=== PATIENT | male | born 1980 ===

== ENCOUNTER 2018-10-15 00:41 | Emergency (ER) | payer OTHER ==
[~2018-10-15] VITALS: Ht 182.9 cm; Wt 77.1 kg
[2018-10-15] MEDS ORDERED: QUET200 PO (00:57)
[2018-10-15] MEDS ORDERED: CARB100ER PO (00:58)
[2018-10-15 01:44] LABS: Hematocrit 41.6 % (37.0-53.0); Hemoglobin 13.9 g/dL (13.5-17.5); Mean Corpuscular HGB Conc 33.4 g/dL (31.5-36.5); Mean Corpuscular Volume 93 fL (80-100); Mean Platelet Volume 9.3 fL (9.1-12.4); Platelet Count 295 K/mm3 (150-400); RDW Coefficient Variation 12.4 % (11.7-14.2); RDW Standard Deviation 42.9 fL (35.1-46.3); Red Blood Cell Count 4.48 M/mm3 (4.30-5.90); White Blood Cell Count 14.09 K/mm3 (4.00-11.30)
[2018-10-15 02:19] LABS: Alanine Aminotransfer (ALT/SGP 36 U/L (12-78); Albumin, Blood 3.4 g/dL (3.4-5.0); Albumin/Globulin Ratio 0.7 (0.8-1.8); Alk Phos 125 U/L (50-136); Anion Gap 12 mmol/L (6-16); Aspartate Aminotrans (AST/SGOT 20 U/L (12-37); Bilirubin, Total 0.4 mg/dL (0.1-1.0); Blood Urea Nitrogen 12 mg/dL (8-24); Bun/Creatinine Ratio 15.3 (12.0-20.0); CO2, Blood 26 mmol/L (21-32); Calcium, Blood 9.2 mg/dL (8.5-10.1); Chloride, Blood 96 mmol/L (98-108); Creatinine, Blood 0.78 mg/dL (0.60-1.20); Globulin, Blood 4.9 g/dL (2.2-4.0); Glomerular Filtration Rate >60 (60-); Glucose, Blood 135 mg/dL (70-99); Potassium, Blood 3.7 mmol/L (3.5-5.5); Sodium, Blood 134 mmol/L (136-145); Total Protein, Blood 8.3 g/dL (6.4-8.2)
[2018-10-15 02:37] LABS: BAND PERCENT MAN 12 % (0-8); BASOPHILS PERCENT MAN 0 % (0-2); EOSINOPHILS PERCENT MAN 0 % (0-6); LYMPHOCYTES ABSOLUTE MAN 0.14 K/mm3 (0.84-5.20); LYMPHOCYTES PERCENT MAN 1 % (21-46); MONOCYTES PERCENT MAN 5 % (4-13); NEUTROPHILS ABSOLUTE MAN 13.24 K/mm3 (1.96-9.15); SEG NEUTROPHILS PERCENT MAN 82 % (41-73); TOTAL CELLS COUNTED 100
[2018-10-15 03:50] LABS: Source, Urine Clean Catch
[2018-10-15 03:52] LABS: Bilirubin, Urine Neg (Neg); Blood, Urine 4+ (Neg); Glucose Qualitative, Urine Neg (Neg); Ketones, Urine 3+ (Neg); Leukocyte Esterase, Urine 2+ (Neg); Nitrite, Urine Pos (Neg); Protein, Urine 3+ (Neg); Specific Gravity, Urine 1.025 (1.003-1.022); Urobilinogen, Urine 1+ (Normal)
[2018-10-15 04:04] LABS: Appearance, Urine Hazy (Clear); Color, Urine Amber (P-Yellow)
[2018-10-15 04:05] LABS: Bacteria Mod /hpf; Squamous Epithelial Cells Few /hpf (Few); White Blood Cells, Urine TNTC /hpf (0-5)
[2018-10-15] MEDS ORDERED: Percocet 5-3251 EACH PO (04:17)
[2018-10-15] MEDS ORDERED: CEFD300 PO (04:17)
== END 2018-10-15 04:50 | disposition home or self-care (01) ==
LOC: ER 00:41
PROVIDERS: Emergency Medicine
DX: N45.1 Epididymitis (principal); N43.3 Hydrocele, unspecified; F17.200 Nicotine dependence, unspecified, uncomplicated; Z86.73 Personal history of transient ischemic attack (TIA), and cerebral infarction without residual deficits; Z79.899 Other long term (current) drug therapy
CPT/HCPCS: 36415; 51798; 76870; 80053; 81001; 85025; 87077; 87086; 87186; 96361; 96374; 99284-25; J1170; J7030

== ENCOUNTER 2018-10-31 17:13 | Emergency (ER) | payer OTHER ==
[~2018-10-31] VITALS: Ht 165.1 cm; Wt 68.0 kg
[~2018-10-31 17:13] MED LIST: CARB100ER PO; CEFD300 PO; Percocet 5-3251 EACH PO; QUET200 PO
[2018-10-31 18:10] LABS: BASOPHILS ABSOLUTE AUTO 0.09 K/mm3 (0.00-0.23); BASOPHILS PERCENT AUTO 1 % (0-2); EOSINOPHILS ABSOLUTE AUTO 0.14 K/mm3 (0.00-0.68); EOSINOPHILS PERCENT AUTO 2 % (0-6); Hematocrit 41.2 % (37.0-53.0); Hemoglobin 13.3 g/dL (13.5-17.5); IMMATURE GRAN ABSOLUTE AUTO 0.08 K/mm3 (0.00-0.10); IMMATURE GRAN PERCENT AUTO 1 % (0-1); LYMPHOCYTES ABSOLUTE AUTO 1.82 K/mm3 (0.84-5.20); LYMPHOCYTES PERCENT AUTO 20 % (21-46); MONOCYTES ABSOLUTE AUTO 0.53 K/mm3 (0.16-1.47); MONOCYTES PERCENT AUTO 6 % (4-13); Mean Corpuscular HGB 30.2 pg (26.0-34.0); Mean Corpuscular HGB Conc 32.3 g/dL (31.5-36.5); Mean Corpuscular Volume 93 fL (80-100); Mean Platelet Volume 8.7 fL (9.1-12.4); NEUTROPHILS ABSOLUTE AUTO 6.59 K/mm3 (1.96-9.15); NEUTROPHILS PERCENT AUTO 71 % (41-73); Platelet Count 757 K/mm3 (150-400); RDW Coefficient Variation 12.8 % (11.7-14.2); RDW Standard Deviation 43.9 fL (35.1-46.3); Red Blood Cell Count 4.41 M/mm3 (4.30-5.90); White Blood Cell Count 9.25 K/mm3 (4.00-11.30)
[2018-10-31 18:34] LABS: Alanine Aminotransfer (ALT/SGP 60 U/L (12-78); Albumin, Blood 3.5 g/dL (3.4-5.0); Albumin/Globulin Ratio 0.8 (0.8-1.8); Alk Phos 178 U/L (50-136); Anion Gap 6 mmol/L (6-16); Aspartate Aminotrans (AST/SGOT 12 U/L (12-37); Bilirubin, Total 0.2 mg/dL (0.1-1.0); Blood Urea Nitrogen 16 mg/dL (8-24); Bun/Creatinine Ratio 24.1 (12.0-20.0); CO2, Blood 26 mmol/L (21-32); Calcium, Blood 8.8 mg/dL (8.5-10.1); Chloride, Blood 106 mmol/L (98-108); Creatinine, Blood 0.66 mg/dL (0.60-1.20); Globulin, Blood 4.6 g/dL (2.2-4.0); Glomerular Filtration Rate >60 (60-); Glucose, Blood 98 mg/dL (70-99); Potassium, Blood 4.4 mmol/L (3.5-5.5); Sodium, Blood 138 mmol/L (136-145); Total Protein, Blood 8.1 g/dL (6.4-8.2)
[2018-10-31 18:46] LABS: Source, Urine Clean Catch
[2018-10-31 18:51] LABS: Bilirubin, Urine Neg (Neg); Blood, Urine Neg (Neg); Glucose Qualitative, Urine Neg (Neg); Ketones, Urine Neg (Neg); Leukocyte Esterase, Urine 1+ (Neg); Nitrite, Urine Neg (Neg); Protein, Urine 1+ (Neg); Urobilinogen, Urine NORM (Normal)
[2018-10-31 18:52] LABS: Appearance, Urine Clear (Clear); Color, Urine Yellow (P-Yellow)
[2018-10-31 19:04] LABS: Bacteria Few /hpf; Red Blood Cells, Urine 0-2 /hpf (0-2); White Blood Cells, Urine 0-2 /hpf (0-5)
[2018-10-31 19:05] LABS: Squamous Epithelial Cells Rare /hpf (Few)
== END 2018-10-31 19:04 | disposition short-term general hospital (02) ==
LOC: ER 17:13
PROVIDERS: Emergency Medicine
DX: N45.1 Epididymitis (principal); Z79.899 Other long term (current) drug therapy; Z86.73 Personal history of transient ischemic attack (TIA), and cerebral infarction without residual deficits; F17.210 Nicotine dependence, cigarettes, uncomplicated
CPT/HCPCS: 36415; 72193; 80053; 81001; 83605; 85025; 87086; 96365-59; 96368; 96375; 99285-25; J1170; J2543; J3370; J7030; Q9967

== ENCOUNTER 2019-03-11 21:22 | Inpatient (IN) | payer OTHER ==
[~2019-03-11] VITALS: Ht 182.9 cm; Wt 76.1 kg
[2019-03-11 22:04] LABS: BASOPHILS ABSOLUTE AUTO 0.07 K/mm3 (0.00-0.23); BASOPHILS PERCENT AUTO 0 % (0-2); EOSINOPHILS ABSOLUTE AUTO 0.07 K/mm3 (0.00-0.68); EOSINOPHILS PERCENT AUTO 0 % (0-6); Hemoglobin 14.7 g/dL (13.5-17.5); IMMATURE GRAN ABSOLUTE AUTO 0.26 K/mm3 (0.00-0.10); IMMATURE GRAN PERCENT AUTO 1 % (0-1); LYMPHOCYTES ABSOLUTE AUTO 1.16 K/mm3 (0.84-5.20); LYMPHOCYTES PERCENT AUTO 4 % (21-46); MONOCYTES ABSOLUTE AUTO 1.33 K/mm3 (0.16-1.47); MONOCYTES PERCENT AUTO 5 % (4-13); Mean Corpuscular HGB 30.5 pg (26.0-34.0); Mean Corpuscular HGB Conc 33.4 g/dL (31.5-36.5); Mean Corpuscular Volume 91 fL (80-100); Mean Platelet Volume 9.2 fL (9.1-12.4); NEUTROPHILS ABSOLUTE AUTO 23.92 K/mm3 (1.96-9.15); NEUTROPHILS PERCENT AUTO 89 % (41-73); Platelet Count 391 K/mm3 (150-400); RDW Coefficient Variation 12.3 % (11.7-14.2); RDW Standard Deviation 41.1 fL (35.1-46.3); Red Blood Cell Count 4.82 M/mm3 (4.30-5.90); White Blood Cell Count 26.81 K/mm3 (4.00-11.30)
[2019-03-11 23:13] LABS: Alanine Aminotransfer (ALT/SGP 39 U/L (12-78); Albumin, Blood 3.2 g/dL (3.4-5.0); Albumin/Globulin Ratio 0.7 (0.8-1.8); Alk Phos 124 U/L (50-136); Anion Gap 7 mmol/L (6-16); Aspartate Aminotrans (AST/SGOT 32 U/L (12-37); Bilirubin, Total 0.5 mg/dL (0.1-1.0); Blood Urea Nitrogen 11 mg/dL (8-24); Bun/Creatinine Ratio 13.5 (12.0-20.0); CO2, Blood 31 mmol/L (21-32); Chloride, Blood 99 mmol/L (98-108); Creatinine, Blood 0.82 mg/dL (0.60-1.20); Globulin, Blood 4.5 g/dL (2.2-4.0); Glomerular Filtration Rate >60 (60-); Glucose, Blood 97 mg/dL (70-99); Potassium, Blood 3.4 mmol/L (3.5-5.5); Sodium, Blood 137 mmol/L (136-145); Total Protein, Blood 7.7 g/dL (6.4-8.2)
[2019-03-11 23:41] LABS: Source, Urine Clean Catch
[2019-03-11 23:44] LABS: Bilirubin, Urine Neg (Neg); Blood, Urine 3+ (Neg); Glucose Qualitative, Urine Neg (Neg); Ketones, Urine Neg (Neg); Leukocyte Esterase, Urine 3+ (Neg); Nitrite, Urine Neg (Neg); Protein, Urine 2+ (Neg); Specific Gravity, Urine 1.015 (1.003-1.022); Urobilinogen, Urine NORM (Normal)
[2019-03-11 23:45] LABS: Appearance, Urine Clear (Clear); Color, Urine Yellow (P-Yellow)
[2019-03-11 23:49] LABS: Red Blood Cells, Urine 0-2 /hpf (0-2); White Blood Cells, Urine 50-100 /hpf (0-5)
[2019-03-11 23:50] LABS: Bacteria Many /hpf; Mucus Light (0-Heavy); Squamous Epithelial Cells Few /hpf (Few)
[2019-03-12 05:33] LABS: BASOPHILS ABSOLUTE AUTO 0.06 K/mm3 (0.00-0.23); BASOPHILS PERCENT AUTO 0 % (0-2); EOSINOPHILS ABSOLUTE AUTO 0.08 K/mm3 (0.00-0.68); EOSINOPHILS PERCENT AUTO 0 % (0-6); Hematocrit 40.9 % (37.0-53.0); Hemoglobin 13.3 g/dL (13.5-17.5); IMMATURE GRAN PERCENT AUTO 2 % (0-1); LYMPHOCYTES ABSOLUTE AUTO 0.64 K/mm3 (0.84-5.20); LYMPHOCYTES PERCENT AUTO 3 % (21-46); MONOCYTES ABSOLUTE AUTO 1.52 K/mm3 (0.16-1.47); MONOCYTES PERCENT AUTO 7 % (4-13); Mean Corpuscular HGB 30.3 pg (26.0-34.0); Mean Corpuscular HGB Conc 32.5 g/dL (31.5-36.5); Mean Corpuscular Volume 93 fL (80-100); Mean Platelet Volume 9.4 fL (9.1-12.4); NEUTROPHILS ABSOLUTE AUTO 20.55 K/mm3 (1.96-9.15); NEUTROPHILS PERCENT AUTO 88 % (41-73); Platelet Count 340 K/mm3 (150-400); RDW Coefficient Variation 12.5 % (11.7-14.2); RDW Standard Deviation 42.9 fL (35.1-46.3); Red Blood Cell Count 4.39 M/mm3 (4.30-5.90); White Blood Cell Count 23.35 K/mm3 (4.00-11.30)
[2019-03-12] MEDS ORDERED: Augmentin 875-1 EACH PO (14:19)
--- NOTE | 2019-03-12 17:38 | NUR ---
PT AOX4 AND COOPERATIVE OF CARE. PT INDEPENDENT, BUT MAY NEED HELP IF IV IS HOOKED UP. PT REPORTED HIS PAIN A 10 UPON ARRIVAL.R TESTICLE IS VERY SWOLLEN HOT AND RED. TREATED PAIN PER EMAR AND THE ADDITION OF ORAL PAIN MEDICATION AND APPLICATION OF ICE SEEMS TO BE EFFECTIVE AT THIS TIME. PT SLEEPING. WILL CONTINUE TO MONITOR.
--- NOTE | 2019-03-13 03:15 | NUR ---
SHIFT SUMMARY PATIENT HAD NO ACUTE CHANGES OBSERVED DURING THE SHIFT. AXOX 3 AND INDEPENDENT IN THE ROOM. RS WEAKNESS FROM HX CVA. PATIENT REPORTED REDUCED R. TESTICLE PAIN WITH PERCOCET. DENIES SOB AND N/V. VSS/AFEBRILE. USES URINAL AT BEDSIDE. TAKES MEDICATION WHOLE WITH WATER. PATIENT ABLE TO REST WITH PAIN MANAGEMENT. CALL LIGHT IN REACH. BED IN LOWEST POSITION. WILL CONTINUE TO MONITOR UNTIL DAY SHIFT NURSE ASSUMES CARE.
[2019-03-13 05:12] LABS: BASOPHILS ABSOLUTE AUTO 0.04 K/mm3 (0.00-0.23); BASOPHILS PERCENT AUTO 0 % (0-2); EOSINOPHILS ABSOLUTE AUTO 0.11 K/mm3 (0.00-0.68); EOSINOPHILS PERCENT AUTO 1 % (0-6); Hemoglobin 13.3 g/dL (13.5-17.5); IMMATURE GRAN ABSOLUTE AUTO 0.35 K/mm3 (0.00-0.10); IMMATURE GRAN PERCENT AUTO 2 % (0-1); LYMPHOCYTES ABSOLUTE AUTO 0.85 K/mm3 (0.84-5.20); LYMPHOCYTES PERCENT AUTO 4 % (21-46); MONOCYTES ABSOLUTE AUTO 1.26 K/mm3 (0.16-1.47); MONOCYTES PERCENT AUTO 7 % (4-13); Mean Corpuscular HGB 29.8 pg (26.0-34.0); Mean Corpuscular HGB Conc 33.3 g/dL (31.5-36.5); NEUTROPHILS ABSOLUTE AUTO 16.74 K/mm3 (1.96-9.15); NEUTROPHILS PERCENT AUTO 87 % (41-73); Platelet Count 357 K/mm3 (150-400); RDW Coefficient Variation 12.5 % (11.7-14.2); RDW Standard Deviation 41.2 fL (35.1-46.3); Red Blood Cell Count 4.47 M/mm3 (4.30-5.90); White Blood Cell Count 19.35 K/mm3 (4.00-11.30)
--- NOTE | 2019-03-13 05:23 | NUR ---
IV ABX INFUSING. PATIENT WATCHING TV. CALL LIGHT IN REACH.
[2019-03-13 05:28] LABS: Mean Corpuscular Volume 90 fL (80-100)
[2019-03-13 05:45] LABS: Albumin, Blood 2.4 g/dL (3.4-5.0); Anion Gap 8 mmol/L (6-16); Blood Urea Nitrogen 8 mg/dL (8-24); Bun/Creatinine Ratio 10.9 (12.0-20.0); CO2, Blood 26 mmol/L (21-32); Calcium, Blood 8.4 mg/dL (8.5-10.1); Chloride, Blood 98 mmol/L (98-108); Creatinine, Blood 0.73 mg/dL (0.60-1.20); Glomerular Filtration Rate >60 (60-); Glucose, Blood 102 mg/dL (70-99); Phosphorus, Blood 3.5 mg/dL (2.5-4.9); Potassium, Blood 3.3 mmol/L (3.5-5.5); Sodium, Blood 132 mmol/L (136-145)
--- NOTE | 2019-03-13 17:21 | NUR ---
PT AOX4 AND COOPERATIVE OF CARE. PT HAS BEEN SLEEPING IN BED ALL DAY. TREATED FOR R TESTICLE PAIN PER EMAR. PT HAS NEEDED PAIN COVERAGE SOON IT IS DUE.PT SLEEPING AT THIS TIME, DID HAVE AND EPISODE OF NAUSEA AND WAS TREATED WITH ZOFRAN. WILL CONTINUR TO MONITOR.
[2019-03-14 05:10] LABS: BASOPHILS ABSOLUTE AUTO 0.07 K/mm3 (0.00-0.23); BASOPHILS PERCENT AUTO 0 % (0-2); EOSINOPHILS ABSOLUTE AUTO 0.16 K/mm3 (0.00-0.68); EOSINOPHILS PERCENT AUTO 1 % (0-6); Hematocrit 39.3 % (37.0-53.0); Hemoglobin 13.1 g/dL (13.5-17.5); IMMATURE GRAN ABSOLUTE AUTO 0.11 K/mm3 (0.00-0.10); IMMATURE GRAN PERCENT AUTO 1 % (0-1); LYMPHOCYTES ABSOLUTE AUTO 0.75 K/mm3 (0.84-5.20); LYMPHOCYTES PERCENT AUTO 5 % (21-46); MONOCYTES ABSOLUTE AUTO 1.04 K/mm3 (0.16-1.47); MONOCYTES PERCENT AUTO 7 % (4-13); Mean Corpuscular HGB Conc 33.3 g/dL (31.5-36.5); Mean Corpuscular Volume 90 fL (80-100); Mean Platelet Volume 8.9 fL (9.1-12.4); NEUTROPHILS ABSOLUTE AUTO 13.78 K/mm3 (1.96-9.15); NEUTROPHILS PERCENT AUTO 87 % (41-73); Platelet Count 382 K/mm3 (150-400); RDW Coefficient Variation 12.7 % (11.7-14.2); RDW Standard Deviation 42.4 fL (35.1-46.3); Red Blood Cell Count 4.36 M/mm3 (4.30-5.90); White Blood Cell Count 15.91 K/mm3 (4.00-11.30)
--- NOTE | 2019-03-14 05:10 | NUR ---
SHIFT SUMMARY: PATIENT PLEASANT AND COOPERATIVE WITH CARE. IS INDEPENDANT IN ROOM DISPITE RS WEAKNESS FROM PREVIOUS CVA. HE HAS HAD INCREASE IN PAIN OFF AND ON THIS SHIFT NEEDING PAIN MEDS SOON THEY ARE DUE. HE HAS HAD FENTANTYL X 1 SO FAR ON THIS SHIFT AFTER SOME MOVEMENT TO FULL SITTING POSITION. WITH PERCOCET HE REPORTS DECLINE OF PAIN LEVEL, TO AVERAGE 3/10, FENTANYL BROUGHT PAIN TO ALMOST A 0/10. HE HAD INCREASE IN APPETITE AND FLUID INTAKE WHICH INCREASED HIS OUTPUT WELL USING THE URINAL AT BEDSIDE. HE CONTINUES TO USE ICE A ALTERNATIVE METHODS OF PAIN MANAGMENT WELL. MEDS WERE GIVEN PER EMAR. IV REMAINED PATIENT, CALL LIGHT REMAINED WITH IN REACH. WILL REPORT TO DAY SHIFT RN.
[2019-03-14 05:40] LABS: Albumin, Blood 2.3 g/dL (3.4-5.0); Anion Gap 9 mmol/L (6-16); Blood Urea Nitrogen 7 mg/dL (8-24); Bun/Creatinine Ratio 8.7 (12.0-20.0); CO2, Blood 26 mmol/L (21-32); Calcium, Blood 8.4 mg/dL (8.5-10.1); Chloride, Blood 96 mmol/L (98-108); Glomerular Filtration Rate >60 (60-); Glucose, Blood 117 mg/dL (70-99); Phosphorus, Blood 4.2 mg/dL (2.5-4.9); Potassium, Blood 3.3 mmol/L (3.5-5.5); Sodium, Blood 131 mmol/L (136-145)
--- NOTE | 2019-03-14 17:22 | NUR ---
SHIFT SUMMARY: PT IS A/O X 4 THIS SHIFT BUT SPEAKS IN BROKEN SENTENCES AND IS SLOW TO REPSOND DUE TO HIS HX OF CVA. PT SLEPT MOST OF THIS MORNING AND AWOKE WITH A MENDEZ WELL INCREASED PAIN TO HIS TESTICLE. PAIN MED WAS GIVEN ORDERED AND AREA WAS ELEVATED AND ICE PACK APPLIED. TESTICLE WAS WARMA DN RED AND PAINFUL TO THE TOUCH. HOSPITALIST ORDERED A ONE TIME DOSE OF PAIN MEDICATION WHICH WAS GIVEN AND PT STATED IT TO BE EFFECTIVE. PT WAS ASSISTED TO TAKE A SHOWER AND STATED HE FELT MUCH BETTER AFTERWARD. PT HAS BEEN USING URINAL FOR VOIDING. IV FLUIDS/ABO INFUSED WITH NO ISSUE. PT IS ABLE TO MAKE HIS NEEDS KNOWN AND CALLS WITH CALL LIGHT WHEN NEEDED.
[2019-03-14 19:06] LABS: CHLAMYDIA TRACHOMATIS, NAA Negative (Negative); NEISSERIA GONORRHOEAE, NAA Negative (Negative)
--- NOTE | 2019-03-14 22:07 | NUR ---
ASSUMED CARE OF THE PATIENT AT BEGINNING OF SHIFT. WATCHING TV IN THE ROOM. REPORTS CHANGED IN GROIN AREA, THAT STARTED TODAY AFTER NAPE. RIGHT TESTICLE IS LARGER THEN YESTERDAY, FIRM AND RED. EDEMA IS PROTUDING INTO THE GROIN AREA ABOVE THE SCROTUM AREA. TENDER TO THE TOUCH, WARM. ALSO REPORTS HEADACHE. LUNG SOUNDS ARE CLEAR THROUGHOUT, RESP EVEN AND UNLABORED, HR NORMAL. BT X4, ON DAY 3 OF NO BM, HAS BEEN GETTING MIRALAX AND STOOL SOFTNERS. CALLED MD EARLIER REGARDING THIS, STATES JUST KEEP HIM ON MIRLAX DAILY. IV DRESSING LIFTED UP, CHANGED DRESSING, IV FLUSHED WITH NO PROBLEMS. GAVE 2 OF PERCOCET. THIS HELPED TO RELEIVE THE HEADACHE AND GROIN PAIN. WILL CONTINUE TO MONITOR.
[2019-03-15 04:55] LABS: BASOPHILS ABSOLUTE AUTO 0.05 K/mm3 (0.00-0.23); BASOPHILS PERCENT AUTO 0 % (0-2); EOSINOPHILS ABSOLUTE AUTO 0.13 K/mm3 (0.00-0.68); EOSINOPHILS PERCENT AUTO 1 % (0-6); Hematocrit 39.4 % (37.0-53.0); Hemoglobin 13.2 g/dL (13.5-17.5); IMMATURE GRAN PERCENT AUTO 1 % (0-1); LYMPHOCYTES ABSOLUTE AUTO 0.86 K/mm3 (0.84-5.20); LYMPHOCYTES PERCENT AUTO 6 % (21-46); MONOCYTES ABSOLUTE AUTO 1.68 K/mm3 (0.16-1.47); MONOCYTES PERCENT AUTO 11 % (4-13); Mean Corpuscular HGB 30.3 pg (26.0-34.0); Mean Corpuscular HGB Conc 33.5 g/dL (31.5-36.5); Mean Corpuscular Volume 90 fL (80-100); Mean Platelet Volume 9.1 fL (9.1-12.4); NEUTROPHILS ABSOLUTE AUTO 12.18 K/mm3 (1.96-9.15); NEUTROPHILS PERCENT AUTO 81 % (41-73); Platelet Count 366 K/mm3 (150-400); RDW Coefficient Variation 12.9 % (11.7-14.2); RDW Standard Deviation 42.7 fL (35.1-46.3); Red Blood Cell Count 4.36 M/mm3 (4.30-5.90)
--- NOTE | 2019-03-15 05:02 | NUR ---
SHIFT SUMMARY: LORENE DID ALOT BETTER THIS NIGHT. HE HAD A DECREASE IN PAIN USE THIS SHIFT DISPITE THE CHANGES TO HIS TESTICLE, WHICH INCLUDE INCREASE SWELLING TO GROIN AREA, FIRMNESS AND INCREASE IN REDNESS. ALTERNATIVE PAIN MANAGMENET HAS BEEN PROVIDED WITH ELEVATION, ICE PACKS, AND DISTRACTION WHICH HAS HELPED TO RELEIVE THE PAIN. HE HAS ONLY HAD TWO DOSAGES OF PERCOCET THIS SHIFT, NO FENTANYL. HE REPORTED NO BM YEARLY IN SHIFT WHICH WAS DAY THREE, HAS BEEN GETTING COLACE AND MD MELL WAS INFORMED WITH NO FURTHER CHANGES. WILL REPORT TO DAY SHIFT RN.
[2019-03-15 05:25] LABS: Albumin, Blood 2.4 g/dL (3.4-5.0); Anion Gap 10 mmol/L (6-16); Blood Urea Nitrogen 11 mg/dL (8-24); Bun/Creatinine Ratio 14.2 (12.0-20.0); CO2, Blood 25 mmol/L (21-32); Calcium, Blood 8.5 mg/dL (8.5-10.1); Chloride, Blood 95 mmol/L (98-108); Creatinine, Blood 0.78 mg/dL (0.60-1.20); Glomerular Filtration Rate >60 (60-); Glucose, Blood 112 mg/dL (70-99); Phosphorus, Blood 3.2 mg/dL (2.5-4.9); Potassium, Blood 3.8 mmol/L (3.5-5.5); Sodium, Blood 130 mmol/L (136-145)
--- NOTE | 2019-03-15 16:27 | NUR ---
SHIFT SUMMARY: PT IS A/O AT BASELINE THIS SHIFT WITH C/O PAIN TO RIGHT TESTICLE X 1. PAIN MEDS GIVEN ORDERED AND AREA WAS ELEVATED AND ICED AND HE WAS ABLE TO SLEEP. IV ABO INFUSED WITH NO ISSUE AFTER CHARGE NURSE WAS ABLE TO START A NEW PERIPHERAL LINE. PT CONTINUES TO USE THE URINAL FOR TOILETING. HE IS ABLE TO MAKE HIS NEEDS KNOWN AND CALLS FOR HELP WHEN NEEDED.
--- NOTE | 2019-03-15 19:20 | NUR ---
ASSUMED CARE OF THE PATIENT. PATIENT RESTING IN BED WATCHING TV. REPORTED TO SCIENTIFIC DIRECTOR BEFORE DAY SHIFT ENDED THAT HE IS HEARING VOICES. CONFIRMED THIS WITH THE PATIENT. HE STATES NEED HOME MEDICATION BUT COULD NOT REMEMBER WHICH MEDICATIONS HE WAS ON. IN CHART REVIEW NOTED HE WAS TAKING SEREQUAL. WILL CALL MD TO GET THIS ORDERED. SWELLING IN TESTICLE HAD DECREASED ALOT RAWHIDE TRIMMER IN THE RIGHT ABOVE SCROTUM AREA. HE SAID HE FELT LIKE THERE WAS A POP AND THE PAIN EASED. HE IS KEEPING ICE ON IT AT THIS TIME. ALONG WITH ELEVATIONS. WILL CONTINUE TO MONITOR.
--- NOTE | 2019-03-15 20:50 | NUR ---
SPOKE TO MD REGARDING HOME MEDICATION. HE ORDERED SEREQUEL 100MG ONE TIME DOSE AND RECOMMENDS DAY SHIFT MD TO FOLLOW UP ON RESTARTING HOME MEDS, WILL PASS THIS TO DAY SHIFT RN.
--- NOTE | 2019-03-16 05:49 | NUR ---
SHIFT SUMMARY: PATIENT REPORTED AT BEGINNING OF SHIFT THAT HE WAS HEARING VOICES AGAIN, AND NEEDED HIS HOME MEDICATIONS. GOT ORDER FOR SERQUEL AND GAVE THAT TO HIM. HE SLEPT THROUGHOUT THE NIGHT TILL THIS AM WHERE HE WOKE FOR PAIN MEDS. SCROTUM AND TESTICLE SWELLING HAS DECREASED IN SIZE, REDNESS HAS IMPROVED SOME, AND HE HAS HAD DECREASE OF USE OF PAIN MEDS WELL. VS REMAINED STABLE, MEDS PER EMAR, PAIN REMAINED IN CONTROL. WILL REPORT TO DAY SHIFT RN.
[2019-03-16] MEDS ORDERED: QUET200 PO (14:09)
[2019-03-16] MEDS ORDERED: QUET100 PO (14:09)
--- NOTE | 2019-03-16 14:20 | NUR ---
PT REPORTS HEARING VOICES AND STATES THAT HE HAS A HX OF THIS. THIS NURSE SPOKE WITH PT PARENTS WHO STATED THAT HE WAS TAKING SEROQUEL AT HOME FOR THE AUDITORY HALLUCINATIONS. DOSE AND FREQUENCY WERE CONFIRMED BY PHARMACY AND DR RODRÍGUEZ NOTIFIED.
--- NOTE | 2019-03-16 17:10 | NUR ---
SHIFT SUMMARY: PT IS A/O AT BASELINE THIS SHIFT WITH C/O PAIN TO RIGHT TESTICLE AND PAIN MEDS WERE GIVEN ORDERED ALONG WITH ICE AND PT WAS ABLE TO REST. THIS NURSE ASSISTED PT WITH A SHOWER TODAY. PT REPORTED HEARING VOICES AND STATED THAT HE WAS TAKING SEROQUEL AT HOME. NOTIFIED AND CHARGE NURSE VERIFIED DOSE WITH PHARMACY, NEW ORDERS WERE RECEIVED AND ORDERS IMPLEMENTED. IV ABO INFUSED ORDERED WITH NO ISSUE. PT IS RESTING IN BED AND USES CALL LIGHT FOR HELP WHEN NEEDED.
[2019-03-17 05:23] LABS: BASOPHILS ABSOLUTE AUTO 0.04 K/mm3 (0.00-0.23); BASOPHILS PERCENT AUTO 0 % (0-2); EOSINOPHILS ABSOLUTE AUTO 0.22 K/mm3 (0.00-0.68); EOSINOPHILS PERCENT AUTO 2 % (0-6); Hemoglobin 13.3 g/dL (13.5-17.5); IMMATURE GRAN ABSOLUTE AUTO 0.17 K/mm3 (0.00-0.10); IMMATURE GRAN PERCENT AUTO 1 % (0-1); LYMPHOCYTES PERCENT AUTO 8 % (21-46); MONOCYTES ABSOLUTE AUTO 1.28 K/mm3 (0.16-1.47); MONOCYTES PERCENT AUTO 9 % (4-13); Mean Corpuscular HGB 30.2 pg (26.0-34.0); Mean Corpuscular HGB Conc 33.3 g/dL (31.5-36.5); Mean Corpuscular Volume 91 fL (80-100); Mean Platelet Volume 9.1 fL (9.1-12.4); NEUTROPHILS ABSOLUTE AUTO 10.74 K/mm3 (1.96-9.15); NEUTROPHILS PERCENT AUTO 79 % (41-73); Platelet Count 393 K/mm3 (150-400); RDW Coefficient Variation 13.2 % (11.7-14.2); RDW Standard Deviation 44.5 fL (35.1-46.3); Red Blood Cell Count 4.41 M/mm3 (4.30-5.90); White Blood Cell Count 13.55 K/mm3 (4.00-11.30)
--- NOTE | 2019-03-17 05:39 | NUR ---
SCHOOL LABORATORY TECHNICIAN SUMMARY NO ACUTE CHANGES THIS SHIFT. PT AAOX3 AND PLEASANT. R TESTICLE STILL HAS SIGNIFICANT SWELLING AND IS PAINFUL AT TIMES FOR PT. TREATED PAIN X2 WITH ORDERED NORCO WITH GOOD PAIN RELIEF. PT DENIES ANY VISUAL OR AUDITORY HALLUCINATIONS THIS SHIFT. PT STATES HE FEELS BETTER SINCE REGULAR SEROQUEL HAS BEEN RESTARTED. PT TO HAVE TESTICULAR ULTRASOUND LATER TODAY. VSS, WILL CONTINUE TO MONITOR.
--- NOTE | 2019-03-17 18:03 | NUR ---
SHIFT SUMMARY PT SLEEPING DURING SHIFT REPORT. MEDICATED FOR PAIN PRIOR TO START OF DAY SHIFT. PT WOKE FOR CARE. REPORTED PAIN MEDICATION EFFECTIVE. PLEASANT AND CO-OP. USING URINAL AT BS. IV ABX ADMIN PER EMAR. PT CALLED FOR PAIN MEDICATION THRU OUT THE DAY, NEEDED. ICE BAG PROVIDED PRN, PER PT REQUEST. PT UP TO CHAIR AT BS, DURING THE DAY, INDEPENDANTLY. PT WITH HX OF CVA AT AGE 11. R SIDED WEAKNESS AND CONTRACTURES TO EXTREMITIES, BUT PT REPORTS THAT HE IS NORMALLY INDEPENDENT AT HOME. ADMITTED FOR EPIDIDYMITIS; R TESTICLE VERY RED AND SWOLLEN. ULTRA SOUND DONE THIS AM. DR RODRÍGUEZ IN TO SEE PT THIS AFTERNOON. NEW ORDERS PLACED TO TX PT TO [facility]. BED AVAILABLE. REPORT TO BE CALLED TO JONAH GILLIAM; [phone], RM # [id number]. PT PRESENTLY EATING DINNER. TRANSPORTATION TO ARRIVE AT 1830. CALL LT IN REACH.
--- NOTE | 2019-03-17 18:19 | NUR ---
CALLED REPORT TO JONAH GILLIAM AT @ [phone]; [facility]. IV TO [facility] TO REMAIN INTACT FOR TRANSPORT.
--- NOTE | 2019-03-17 18:29 | NUR ---
[facility] AND TRANSPORT TO [place].
== END 2019-03-17 18:31 | disposition short-term general hospital (02) | DRG 872 ==
LOC: ER 21:22 → ERHOLD 03-12 02:31 → MEDS 03-12 12:01
PROVIDERS: Emergency Medicine; Internal Medicine; Physician Assistant; ADMIT Hospitalist
DX: A41.9 Sepsis, unspecified organism (principal); R44.0 Auditory hallucinations; G40.209 Localization-related (focal) (partial) symptomatic epilepsy and epileptic syndromes with complex partial seizures, not intractable, without status epilepticus; N45.1 Epididymitis; N43.3 Hydrocele, unspecified; I10 Essential (primary) hypertension; F17.210 Nicotine dependence, cigarettes, uncomplicated; Z90.79 Acquired absence of other genital organ(s); Z86.73 Personal history of transient ischemic attack (TIA), and cerebral infarction without residual deficits; Z79.899 Other long term (current) drug therapy
CPT/HCPCS: 36415; 72193; 76870; 80053; 80069; 81001; 83605; 85025; 87040; 87086; 87491; 87591; 96365-59; 96375-59; 96376-59; 99285-25; A9270; J0696; J1650; J1885; J1956; J2270; J2405; J3010; J7030; J7050; Q9967

== ENCOUNTER 2020-11-12 15:49 | Emergency (ER) | payer OTHER ==
[~2020-11-12] VITALS: Ht 170.2 cm; Wt 81.7 kg
[~2020-11-12 15:49] MED LIST changes: +Augmentin 875-1 EACH PO; +QUET100 PO
[2020-11-12] MEDS ORDERED: OMEP20ER (17:08)
[2020-11-12] MEDS ORDERED: DEPO-TESTO200 MG/12 IM (17:09)
[2020-11-12] MEDS ORDERED: LOSA50 PO (17:09)
[2020-11-12] MEDS ORDERED: CARBAMAZEPINE200 M7 PO (17:09)
[2020-11-12] MEDS ORDERED: Percocet 5-3251 EACH PO (17:31)
== END 2020-11-12 17:39 | disposition home or self-care (01) ==
LOC: ER 15:49
DX: S63.293A Dislocation of distal interphalangeal joint of left middle finger, initial encounter (principal); F17.210 Nicotine dependence, cigarettes, uncomplicated; Z23 Encounter for immunization; Z79.899 Other long term (current) drug therapy; W22.8XXA Striking against or struck by other objects, initial encounter
CPT/HCPCS: 12011; 26770; 73130; 90471; 90714; 99283-25; A9270

== ENCOUNTER 2021-06-16 16:32 | Observation (INO) | payer OTHER ==
[~2021-06-16] VITALS: Ht 172.7 cm; Wt 81.7 kg
[~2021-06-16 16:32] MED LIST changes: +CARBAMAZEPINE200 M7 PO; +DEPO-TESTO200 MG/12 IM; +LOSA50 PO; +OMEP20ER
[2021-06-16 17:50] LABS: BASOPHILS ABSOLUTE AUTO 0.05 K/mm3 (0.00-0.23); BASOPHILS PERCENT AUTO 1 % (0-2); EOSINOPHILS ABSOLUTE AUTO 0.27 K/mm3 (0.00-0.68); EOSINOPHILS PERCENT AUTO 4 % (0-6); Hematocrit 42.6 % (37.0-53.0); Hemoglobin 14.2 g/dL (13.5-17.5); IMMATURE GRAN ABSOLUTE AUTO 0.01 K/mm3 (0.00-0.10); IMMATURE GRAN PERCENT AUTO 0 % (0-1); LYMPHOCYTES ABSOLUTE AUTO 0.84 K/mm3 (0.84-5.20); LYMPHOCYTES PERCENT AUTO 13 % (21-46); MONOCYTES ABSOLUTE AUTO 0.64 K/mm3 (0.16-1.47); MONOCYTES PERCENT AUTO 10 % (4-13); Mean Corpuscular HGB 30.5 pg (26.0-34.0); Mean Corpuscular HGB Conc 33.3 g/dL (31.5-36.5); Mean Corpuscular Volume 91 fL (80-100); Mean Platelet Volume 8.9 fL (9.1-12.4); NEUTROPHILS ABSOLUTE AUTO 4.44 K/mm3 (1.96-9.15); NEUTROPHILS PERCENT AUTO 71 % (41-73); Platelet Count 394 K/mm3 (150-400); RDW Coefficient Variation 13.9 % (11.7-14.2); RDW Standard Deviation 47.3 fL (35.1-46.3); Red Blood Cell Count 4.66 M/mm3 (4.30-5.90); White Blood Cell Count 6.25 K/mm3 (4.00-11.30)
[2021-06-16 18:17] LABS: Alanine Aminotransfer (ALT/SGP 39 U/L (12-78); Albumin, Blood 3.8 g/dL (3.4-5.0); Albumin/Globulin Ratio 1.1 (0.8-1.8); Alk Phos 140 U/L (50-136); Anion Gap 5 mmol/L (6-16); Aspartate Aminotrans (AST/SGOT 32 U/L (12-37); Bilirubin, Total 0.3 mg/dL (0.1-1.0); Blood Urea Nitrogen 14 mg/dL (8-24); Bun/Creatinine Ratio 14.1 (12.0-20.0); CO2, Blood 28 mmol/L (21-32); Calcium, Blood 8.9 mg/dL (8.5-10.1); Chloride, Blood 106 mmol/L (98-108); Creatinine, Blood 0.99 mg/dL (0.60-1.20); Ethanol (Alcohol), Blood, Med <3 mg/dL; Globulin, Blood 3.5 g/dL (2.2-4.0); Glomerular Filtration Rate >60 (60-); Glucose, Blood 97 mg/dL (70-99); Salicylate <1.7 mg/dL (2.8-20.0); Sodium, Blood 139 mmol/L (136-145); Total Protein, Blood 7.3 g/dL (6.4-8.2)
[2021-06-16 18:40] LABS: Acetaminophen, Random <2.0 ug/mL (10.0-30.0)
[2021-06-16 20:05] LABS: Source, Urine Clean Catch
[2021-06-16 20:09] LABS: Appearance, Urine Clear (Clear); Bilirubin, Urine Neg (Neg); Blood, Urine 1+ (Neg); Color, Urine Yellow (P-Yellow); Glucose Qualitative, Urine Neg (Neg); Ketones, Urine Neg (Neg); Leukocyte Esterase, Urine 1+ (Neg); Nitrite, Urine Neg (Neg); Protein, Urine 2+ (Neg); Specific Gravity, Urine 1.025 (1.003-1.022); Urobilinogen, Urine NORM (Normal)
[2021-06-16 20:21] LABS: Bacteria Many /hpf; Mucus Light (0-Heavy); Red Blood Cells, Urine 0-2 /hpf (0-2); Squamous Epithelial Cells Mod /hpf (Few)
[2021-06-16 20:23] LABS: U Amphetamine Screen DETECTED; U Barbituate Screen Not Detected; U Benzodiazapine Screen Not Detected; U Buprenorphine Screen Not Detected; U Cannabinoids Screen DETECTED; U Cocaine Screen Not Detected; U Methadone Screen Not Detected; U Methamphetamine Screen DETECTED; U Opiates Screen Not Detected; U Oxycodone Screen Not Detected; U Phencyclidine Screen Not Detected; U Propoxyphene Screen Not Detected
[2021-06-17 00:38] LABS: SARS-Cov-2 (COVID-19) PCR, MMC NEGATIVE (NEGATIVE)
== END 2021-06-17 09:24 | disposition home or self-care (01) ==
LOC: ER 16:32 → EOR 16:33
PROVIDERS: ADMIT Emergency Medicine
DX: F29 Unspecified psychosis not due to a substance or known physiological condition (principal); F15.20 Other stimulant dependence, uncomplicated; T42.1X1A Poisoning by iminostilbenes, accidental (unintentional), initial encounter; F17.210 Nicotine dependence, cigarettes, uncomplicated; Z88.8 Allergy status to other drugs, medicaments and biological substances; Z86.73 Personal history of transient ischemic attack (TIA), and cerebral infarction without residual deficits; Z79.899 Other long term (current) drug therapy; Z20.822 Contact with and (suspected) exposure to COVID-19
CPT/HCPCS: 36415; 80053; 81001; 85025; 87086; 93005; 93010; 99285-25; G0378; G0480; J7030; Q3014; U0004

== ENCOUNTER 2023-05-16 22:13 | Emergency (ER) | payer OTHER ==
[~2023-05-16] VITALS: Ht 185.4 cm; Wt 81.7 kg
[2023-05-16 22:33] LABS: BASOPHILS ABSOLUTE AUTO 0.05 K/mm3 (0.00-0.23); BASOPHILS PERCENT AUTO 1 % (0-2); EOSINOPHILS ABSOLUTE AUTO 0.13 K/mm3 (0.00-0.68); EOSINOPHILS PERCENT AUTO 2 % (0-6); Hematocrit 40.9 % (37.0-53.0); Hemoglobin 13.6 g/dL (13.5-17.5); IMMATURE GRAN ABSOLUTE AUTO 0.01 K/mm3 (0.00-0.10); IMMATURE GRAN PERCENT AUTO 0 % (0-1); LYMPHOCYTES ABSOLUTE AUTO 1.25 K/mm3 (0.84-5.20); LYMPHOCYTES PERCENT AUTO 16 % (21-46); MONOCYTES ABSOLUTE AUTO 0.66 K/mm3 (0.16-1.47); MONOCYTES PERCENT AUTO 9 % (4-13); Mean Corpuscular HGB 30.1 pg (26.0-34.0); Mean Corpuscular HGB Conc 33.3 g/dL (31.5-36.5); Mean Corpuscular Volume 91 fL (80-100); Mean Platelet Volume 8.5 fL (9.1-12.4); NEUTROPHILS ABSOLUTE AUTO 5.54 K/mm3 (1.96-9.15); NEUTROPHILS PERCENT AUTO 73 % (41-73); Platelet Count 419 K/mm3 (150-400); RDW Coefficient Variation 12.4 % (11.7-14.2); RDW Standard Deviation 41.4 fL (35.1-46.3); Red Blood Cell Count 4.52 M/mm3 (4.30-5.90); White Blood Cell Count 7.64 K/mm3 (4.00-11.30)
[2023-05-16 22:49] LABS: Albumin, Blood 3.9 g/dL (3.4-5.0); Bilirubin, Total 0.3 mg/dL (0.1-1.0); Bun/Creatinine Ratio 16.2 (12.0-20.0); Creatinine, Blood 0.93 mg/dL (0.60-1.20); Globulin, Blood 3.8 g/dL (2.2-4.0); Potassium, Blood 4.5 mmol/L (3.5-5.5); Total Protein, Blood 7.7 g/dL (6.4-8.2)
[2023-05-17 00:50] LABS: Carbamazepine 36.1 ug/mL (4.0-12.0)
[2023-05-17 11:32] LABS: Carbamazepine 25.9 ug/mL (4.0-12.0)
[2023-05-17 13:55] VITALS: BP 164/128
== END 2023-05-17 14:02 | disposition home or self-care (01) ==
LOC: ER 22:13
PROVIDERS: Emergency Medicine
DX: T42.1X1A Poisoning by iminostilbenes, accidental (unintentional), initial encounter (principal); Z79.899 Other long term (current) drug therapy; F17.210 Nicotine dependence, cigarettes, uncomplicated
CPT/HCPCS: 70450; 80053; 80156; 85025; 93005; 93010; 99285-25

== ENCOUNTER 2024-03-09 18:22 | Emergency (ER) | payer OTHER ==
[~2024-03-09] VITALS: Ht 182.9 cm; Wt 77.1 kg
[~2024-03-09 18:22] MED LIST changes: +ATOR10 PO; +CLIN150 PO; +CLOP75 PO; +Cephalexin500 MG PO; +IBUP800 PO; +Lisinopril2.5 MG; +METO25ER; +METO50ER PO; +OMEP20ER PO; +SPIR25; +Tegretol200 MG PO
[2024-03-09 19:58] VITALS: BP 114/80
== END 2024-03-09 20:44 | disposition home or self-care (01) ==
LOC: ER 18:22
DX: S52.571A Other intraarticular fracture of lower end of right radius, initial encounter for closed fracture (principal); W01.10XA Fall on same level from slipping, tripping and stumbling with subsequent striking against unspecified object, initial encounter; Z79.899 Other long term (current) drug therapy; F17.210 Nicotine dependence, cigarettes, uncomplicated
CPT/HCPCS: 25605; 73090; 99283-25

== ENCOUNTER 2025-03-24 14:40 | Emergency (ER) | payer OTHER ==
[~2025-03-24] VITALS: Ht 182.9 cm; Wt 95.2 kg
[2025-03-24 14:55] VITALS: BP 161/120
[2025-03-24 15:15] LABS: Source, Urine Clean Catch
[2025-03-24 15:16] LABS: BASOPHILS ABSOLUTE AUTO 0.05 K/mm3 (0.00-0.23); BASOPHILS PERCENT AUTO 1 % (0-2); EOSINOPHILS ABSOLUTE AUTO 0.25 K/mm3 (0.00-0.68); EOSINOPHILS PERCENT AUTO 4 % (0-6); Hematocrit 39.3 % (37.0-53.0); Hemoglobin 13.0 g/dL (13.5-17.5); IMMATURE GRAN ABSOLUTE AUTO 0.02 K/mm3 (0.00-0.10); IMMATURE GRAN PERCENT AUTO 0 % (0-1); LYMPHOCYTES ABSOLUTE AUTO 1.82 K/mm3 (0.84-5.20); LYMPHOCYTES PERCENT AUTO 26 % (21-46); MONOCYTES ABSOLUTE AUTO 0.60 K/mm3 (0.16-1.47); MONOCYTES PERCENT AUTO 8 % (4-13); Mean Corpuscular HGB Conc 33.1 g/dL (31.5-36.5); Mean Corpuscular Volume 92 fL (80-100); NEUTROPHILS ABSOLUTE AUTO 4.40 K/mm3 (1.96-9.15); NEUTROPHILS PERCENT AUTO 62 % (41-73); NRBC ABSOLUTE 0.00 K/mm3 (0.00-0.02); NRBC Auto 0.0 /100 WBC (0.0-0.2); Platelet Count 391 K/mm3 (150-400); RDW Coefficient Variation 12.9 % (11.7-14.2); RDW Standard Deviation 43.5 fL (35.1-46.3)
[2025-03-24 15:18] LABS: Bilirubin, Urine Neg (Neg); Color, Urine Yellow (P-Yellow); Glucose Qualitative, Urine Neg (Neg); Ketones, Urine Neg (Neg); Leukocyte Esterase, Urine 1+ (Neg); Protein, Urine 1+ (Neg); Specific Gravity, Urine 1.010 (1.003-1.022); Urobilinogen, Urine NORM (Normal)
[2025-03-24 15:32] LABS: Red Blood Cells, Urine 0-2 /hpf (0-2)
[2025-03-24] MEDS ORDERED: Ketorolac Tromethamine 15mg Vial IV ONE ×2 (15:55→16:55)
[2025-03-24 16:13] LABS: Alanine Aminotransfer (ALT/SGP 35.0 U/L (12-78); Albumin, Blood 3.7 g/dL (3.4-5.0); Albumin/Globulin Ratio 0.9 (0.8-1.8); Anion Gap 7.0 mmol/L (3-11); Aspartate Aminotrans (AST/SGOT 18.0 U/L (12-37); Bilirubin, Total 0.2 mg/dL (0.1-1.0); Blood Urea Nitrogen 20.0 mg/dL (8-24); CO2, Blood 29.0 mmol/L (21-32); Calcium, Blood 8.9 mg/dL (8.5-10.1); Chloride, Blood 106.0 mmol/L (98-108); Creatinine, Blood 0.81 mg/dL (0.60-1.20); Globulin, Blood 4.1 g/dL (2.2-4.0); Glucose, Blood 87.0 mg/dL (70-99); Potassium, Blood 4.0 mmol/L (3.5-5.5); Sodium, Blood 138.0 mmol/L (136-145); Total Protein, Blood 7.8 g/dL (6.4-8.2)
[2025-03-24] MEDS ORDERED: CEPH500 PO (17:10)
== END 2025-03-24 17:37 | disposition home or self-care (01) ==
LOC: ER 14:40
PROVIDERS: Physician Assistant
DX: R31.9 Hematuria, unspecified (principal); L03.116 Cellulitis of left lower limb; F17.210 Nicotine dependence, cigarettes, uncomplicated; Z86.73 Personal history of transient ischemic attack (TIA), and cerebral infarction without residual deficits; Z79.899 Other long term (current) drug therapy
CPT/HCPCS: 74177; 80053; 81001; 85025; 96374-59; 96376; 99284-25; A9270; J1885; Q9967